=== PATIENT | male | born 1960 | race Caucasian/White ===

== ENCOUNTER 2018-03-20 11:00 | Day surgery (SDC) | payer MEDICARE, MEDICAID ==
[2018-03-17 14:44] VITALS: BMI 31.5
[2018-03-20] MEDS ORDERED: PROPOFOL 200 MG/20 ML VIAL ONE (13:16)
--- NOTE | 2018-03-20 14:06 | OP ---
DATE OF PROCEDURE: 03/20/2018 SURGEON: Dr. Earnest Sellers PROCEDURE: Colonoscopy with snare polypectomy. PREOPERATIVE DIAGNOSIS: History of adenomatous colon polyps. PROCEDURE IN DETAIL: Informed consent was obtained. The patient was sedated with total intravenous anesthesia. The rectal exam was performed and was normal. The preparation quality was good. The co lonoscope was advanced to the cecum where the ileocecal valve and appendiceal orifice were clearly id entified. A 1.2 cm flat polyp was raised with saline in the ascending colon, a total of 7 mL of sali ne and then removed by snare cautery polypectomy in 3 pieces. The polyp was entirely removed. There was a 6 mm polyp removed by snare cautery polypectomy from the descending colon. The remainder of t he colonic mucosa was normal including retroflexed views in the rectum. IMPRESSION: 1. A 1.2 cm flat polyp removed in piecemeal fashion and saline lift from the ascending colon. 2. A 6 mm polyp removed by hot snare from the descending colon. RECOMMENDATIONS: 1. If the ascending colon polyp is an adenoma or if either polyp has a villous or serrated histology , then, repeat the colonoscopy in 3 years. 2. Otherwise, repeat colonoscopy in 5 years.
== END 2018-03-20 14:45 | disposition home or self-care (01) ==
LOC: SDC 11:00
PROVIDERS: ATTEND Internal Medicine Gastroenterology
PROC: 3E0H8GC Introduction of Other Therapeutic Substance into Lower GI, Via Natural or Artificial Opening Endoscopic (ICD-10-PCS; principal; 2018-03-20)
PROC: 0DBK8ZX Excision of Ascending Colon, Via Natural or Artificial Opening Endoscopic, Diagnostic (ICD-10-PCS; 2018-03-20)
PROC: 0DBM8ZX Excision of Descending Colon, Via Natural or Artificial Opening Endoscopic, Diagnostic (ICD-10-PCS; 2018-03-20)
DX: Z12.11 Encounter for screening for malignant neoplasm of colon (principal); D12.2 Benign neoplasm of ascending colon; D12.4 Benign neoplasm of descending colon; G43.909 Migraine, unspecified, not intractable, without status migrainosus; F32.9 Major depressive disorder, single episode, unspecified; F41.9 Anxiety disorder, unspecified; R62.50 Unspecified lack of expected normal physiological development in childhood; F79 Unspecified intellectual disabilities; Z86.010 Personal history of colon polyps; Z79.899 Other long term (current) drug therapy; Z88.8 Allergy status to other drugs, medicaments and biological substances
CPT/HCPCS: 88305; J2704